=== PATIENT | female | born 1960 | race Caucasian/White ===

== ENCOUNTER 2019-06-19 06:00 | Outpatient (RCR) | payer BC, SELFPAY | END 2019-07-19 00:01 | LOC: WPT 06:00 | PROVIDERS: Family Provider Internal Medicine; Visit Provider Nurse Practitioner Family | DX: M25.512 Pain in left shoulder (principal) | CPT/HCPCS: 97110 ×3; 97112; 97530; G0283 ==

== ENCOUNTER 2019-07-20 06:00 | Outpatient (RCR) | payer BC, SELFPAY | END 2019-08-19 23:59 | disposition home or self-care (01) | LOC: WPT 06:00 | PROVIDERS: Family Provider Internal Medicine; PCP Nurse Practitioner Family; Visit Provider Internal Medicine | DX: M25.512 Pain in left shoulder (principal); G89.29 Other chronic pain ==

== ENCOUNTER → 2019-07-21 15:23 | Outpatient (BNVA) | payer BC, SELFPAY | PROVIDERS: Family Provider Internal Medicine; PCP Nurse Practitioner Family; Visit Provider Nurse Practitioner | DX: M25.9 Joint disorder, unspecified (principal) | CPT/HCPCS: 73030 ==

== ENCOUNTER 2019-08-15 08:35 | Outpatient (CLI) | payer BC, SELFPAY ==
--- NOTE | 2019-08-15 08:45 | MR_ITS ---
WS: [id number] MRI LEFT SHOULDER HISTORY: left shoulder pain COMPARISON: LEFT shoulder radiograph 07/21/2019 TECHNIQUE: Multiplanar sequences of the shoulder joint are submitted. Quality of examination is limited by motion and body habitus. Marked thickening involving the distal supraspinatus tendon. There is significant tendinopathy but th ere is also an insertion site tear of the distal tendon. This tear and fluid extend along the more pr oximal tendon consistent with an interstitial tear. More significant fraying along the superior artic ular surface of the tendon. The remaining rotator cuff is negative. Mild AC joint arthritis. No subacromial or subdeltoid bursal fluid. Small subchondral cystic changes at the humeral head. Biceps tendon is not identified in the bicipital groove. There is abnormal incre ased T2 signal in the bicipital groove. No labral abnormality. Mild narrowing of the glenohumeral delmi nt. MR/MR shoulder LT wo con* [id number] IMPRESSION: 1. Marked tendinopathy distal supraspinatus tendon. 2. Insertion site tear with interstitial extension of the supraspinatus tendon . 3. Normal biceps tendon at the bicipital groove is not identified. Suspect dis located biceps tendon or severe tendinopathy. 4. Mild osteoarthritis of the glenohumeral joint.
== END 2019-08-15 08:36 | disposition home or self-care (01) ==
LOC: RADSHAW 08:38
PROVIDERS: Family Provider Internal Medicine; PCP Nurse Practitioner Family; Visit Provider Nurse Practitioner Family
DX: M19.012 Primary osteoarthritis, left shoulder (principal); M75.102 Unspecified rotator cuff tear or rupture of left shoulder, not specified as traumatic; M25.512 Pain in left shoulder
CPT/HCPCS: 73221

== ENCOUNTER 2020-08-14 06:00 | Outpatient (RCR) | payer BC, SELFPAY | END 2020-08-19 23:59 | disposition home or self-care (01) | LOC: WPT 06:00 | PROVIDERS: Family Provider Internal Medicine; PCP Nurse Practitioner Family; Referring Provider Orthopaedic Surgery; Visit Provider Orthopaedic Surgery | DX: Z47.89 Encounter for other orthopedic aftercare (principal); Z96.651 Presence of right artificial knee joint | CPT/HCPCS: 97110; 97163 ==

== ENCOUNTER 2020-08-20 06:00 | Outpatient (RCR) | payer BC, SELFPAY | END 2020-09-16 23:59 | disposition home or self-care (01) | LOC: WPT 06:00 | PROVIDERS: PCP Nurse Practitioner Family; Referring Provider Orthopaedic Surgery; Visit Provider Orthopaedic Surgery | DX: Z47.1 Aftercare following joint replacement surgery (principal); Z96.651 Presence of right artificial knee joint | CPT/HCPCS: 97110; 97140 ==

== ENCOUNTER 2020-09-17 06:00 | Outpatient (RCR) | payer BC, SELFPAY | END 2020-10-17 23:59 | disposition home or self-care (01) | LOC: WPT 06:00 | PROVIDERS: PCP Nurse Practitioner Family; Referring Provider Orthopaedic Surgery; Visit Provider Orthopaedic Surgery | DX: Z47.1 Aftercare following joint replacement surgery (principal); Z96.651 Presence of right artificial knee joint | CPT/HCPCS: 97110; 97140 ==

== ENCOUNTER 2020-10-18 06:00 | Outpatient (RCR) | payer BC, SELFPAY | END 2020-11-16 23:59 | disposition home or self-care (01) | LOC: WPT 06:00 | PROVIDERS: PCP Nurse Practitioner Family; Referring Provider Orthopaedic Surgery; Visit Provider Orthopaedic Surgery | DX: Z47.1 Aftercare following joint replacement surgery (principal); Z96.651 Presence of right artificial knee joint | CPT/HCPCS: 97110; 97140; 97530 ==

== ENCOUNTER 2020-11-17 06:00 | Outpatient (RCR) | payer BC, SELFPAY | END 2020-12-17 23:59 | disposition home or self-care (01) | LOC: WPT 06:00 | PROVIDERS: PCP Nurse Practitioner Family; Referring Provider Orthopaedic Surgery; Visit Provider Orthopaedic Surgery | DX: Z47.1 Aftercare following joint replacement surgery (principal); Z96.651 Presence of right artificial knee joint | CPT/HCPCS: 97110; 97112; 97140 ==